=== PATIENT | male | born 1995 | race Caucasian/White ===

== ENCOUNTER 2017-09-19 16:41 | Emergency (ER) | payer MEDICAID, OTHER ==
[~2017-09-19] VITALS: Ht 170.2 cm; Wt 63.5 kg
[2017-09-19 17:14] VITALS: BP 129/85
[2017-09-19 18:51] LABS: Urine Bacteria NONE SEEN /hpf (None Seen); Urine Blood Negative /uL (Negative); Urine Mucus FEW (None Seen); Urine Specific Gravity 1.031 (1.001-1.035); Urine WBC <1 /hpf (0 - 3)
[2017-09-19] MEDS ORDERED: AZITHROMYCIN 250 MG TAB PO ONE ×2 (20:45→20:51)
[2017-09-19] MEDS ORDERED: cefTRIAXone SOD 1,000 MG VL IM ONE (20:45)
[2017-09-19] MEDS ORDERED: cefTRIAXone SOD 1,000 MG VL ONE (20:51)
== END 2017-09-19 21:24 | disposition home or self-care (01) ==
LOC: ER 16:47
DX: R30.0 Dysuria (principal); R35.0 Frequency of micturition; Z20.2 Contact with and (suspected) exposure to infections with a predominantly sexual mode of transmission
CPT/HCPCS: 81001; 87491; 87591; 96372; 99284; J0696